=== PATIENT | male | born 1965 | race Caucasian/White ===

== ENCOUNTER 2017-10-28 06:13 | Day surgery (SDC) | payer OTHER ==
[2017-10-28] MEDS ORDERED: PROPOFOL 60 ML (08:29)
== END 2017-10-28 11:23 | disposition home or self-care (01) ==
LOC: GIL 06:13
DX: Z12.11 Encounter for screening for malignant neoplasm of colon (principal); K64.8 Other hemorrhoids
CPT/HCPCS: 45378

== ENCOUNTER 2018-08-28 12:38 | Inpatient (IN) | payer OTHER ==
[2018-08-28 14:13] LABS: ADD MAN DIFF? NO
[2018-08-28] MEDS: SODIUM CHLORIDE 0.9% 1L BAG IV* (14:18)
[2018-08-28] MEDS: ONDANSETRON 4 MG INJ IV (14:18)
[2018-08-28] MEDS: HYDROmorphONE 0.5 MG/0.5 ML SYG IV (14:18)
[2018-08-28] MEDS: PIPER-TAZO 3.375 GM IV (PMX) 100 ML IVPB ×3 (14:18→23:49)
[2018-08-28 14:20] LABS: BASOPHILS % 0.2 % (0.0-2.0); EOSINOPHILS % 0.1 % (0.0-7.0); HEMATOCRIT 41.4 % (42.0-52.0); HEMOGLOBIN 13.9 g/dl (14.0-18.0); LYMPHOCYTES # 1.8 10^3/ul (0.8-2.9); MEAN CORPUSCULAR HEMOGLOBIN 29.4 pg (29.0-33.0); MEAN CORPUSCULAR HGB CONC 33.6 g/dl (32.0-37.0); MEAN CORPUSCULAR VOLUME 87.7 fl (82.0-101.0); MONOCYTE # 1.5 10^3/ul (0.3-0.9); MONOCYTES % 8.1 % (0.0-11.0); NEUTROPHIL # 14.7 10^3/ul (1.6-7.5); NEUTROPHILS % 81.1 % (39.0-77.0); PLATELET COUNT 213 10^3/UL (140-415); RED BLOOD COUNT 4.72 10^6/ul (4.70-6.10); RED CELL DISTRIBUTION WIDTH 12.5 % (11.5-14.5)
[2018-08-28 14:20] LABS: WHITE BLOOD COUNT 18.1 10^3/ul (4.8-10.8)
[2018-08-28 14:39] LABS: ALANINE AMINOTRANSFERASE 12 IU/L (13-69); ALBUMIN 4.2 g/dl (3.3-4.9); ALBUMIN/GLOBULIN RATIO 1.16; ALKALINE PHOSPHATASE 54 IU/L (42-121); ANION GAP 8 (5-13); ASPARTATE AMINO TRANSFERASE 17 IU/L (15-46); BILIRUBIN,INDIRECT 0.4 mg/dl (0-1.1); BILIRUBIN,TOTAL 0.4 mg/dl (0.2-1.3); BLOOD UREA NITROGEN 10 mg/dl (7-20); CALCIUM 9.2 mg/dl (8.4-10.2); CARBON DIOXIDE 28 mmol/L (21-31); CHLORIDE 102 mmol/L (97-110); CREATININE 0.73 mg/dl (0.61-1.24); Estimated GFR > 60 mL/min (>60); GLUCOSE 145 mg/dl (70-220); INR 1.04; LIPASE 32 U/L (23-300); PARTIAL THROMBOPLASTIN TIME 31.8 Sec (23.0-35.0); POTASSIUM 3.8 mmol/L (3.5-5.1); PROTIME 13.7 Sec (11.9-14.9); PT RATIO 1.1; SODIUM 138 mmol/L (135-144); TOTAL PROTEIN 7.8 g/dl (6.1-8.1)
[2018-08-28] MEDS ORDERED: ACETAMINOPHEN 325 MG TAB PO (16:00)
[2018-08-28] MEDS ORDERED: ONDANSETRON 4 MG INJ IV ×2 (16:00→16:30)
[2018-08-28] MEDS ORDERED: NACL 0.9% 3 ML SYG IV (16:30)
[2018-08-28] MEDS ORDERED: morphine 2 MG INJ IV (16:30)
[2018-08-28 16:51] LABS: HEMOGLOBIN A1C 6.9 % (0-5.9)
[2018-08-28] MEDS: SOD CHLORIDE 0.9% 1,000 ML IV (16:57)
[2018-08-28] MEDS: HYDROCODONE/APAP (5/325) TAB PO ×2 (17:38→23:52)
[2018-08-28] MEDS: morphine SULFATE/PF (2 MG/2 ML) SYG IV (21:12)
[2018-08-29] MEDS: SOD CHLORIDE 0.9% 1,000 ML IV ×3 (03:03→22:30)
[2018-08-29] MEDS: PIPER-TAZO 3.375 GM IV (PMX) 100 ML IVPB ×3 (05:36→17:49)
[2018-08-29 05:52] LABS: ADD MAN DIFF? NO
[2018-08-29 05:54] LABS: WHITE BLOOD COUNT 13.2 10^3/ul (4.8-10.8)
[2018-08-29 05:54] LABS: BASOPHILS % 0.2 % (0.0-2.0); EOSINOPHILS % 0.3 % (0.0-7.0); HEMATOCRIT 36.8 % (42.0-52.0); HEMOGLOBIN 12.4 g/dl (14.0-18.0); LYMPHOCYTES # 1.6 10^3/ul (0.8-2.9); LYMPHOCYTES % 12.3 % (15.0-51.0); MEAN CORPUSCULAR HGB CONC 33.7 g/dl (32.0-37.0); MEAN CORPUSCULAR VOLUME 88.9 fl (82.0-101.0); MEAN PLATELET VOLUME 10.5 fl (7.4-10.4); MONOCYTES % 7.5 % (0.0-11.0); NEUTROPHIL # 10.4 10^3/ul (1.6-7.5); NEUTROPHILS % 79.2 % (39.0-77.0); PLATELET COUNT 205 10^3/UL (140-415); RED BLOOD COUNT 4.14 10^6/ul (4.70-6.10); RED CELL DISTRIBUTION WIDTH 12.4 % (11.5-14.5)
[2018-08-29 06:19] LABS: INR 1.09; PROTIME 14.2 Sec (11.9-14.9); PT RATIO 1.1
[2018-08-29 06:20] LABS: PARTIAL THROMBOPLASTIN TIME 36.2 Sec (23.0-35.0)
[2018-08-29 06:32] LABS: PHOSPHORUS 2.8 mg/dl (2.5-4.9)
[2018-08-29 06:32] LABS: CHOL/HDL RATIO 5.2 RATIO; CHOLESTEROL 116 mg/dl (100-200); HDL CHOLESTEROL 22 mg/dl (28-71); LDL CHOLESTEROL,CALCULATED 60 mg/dl; MAGNESIUM 2.1 mg/dl (1.7-2.5); TRIGLYCERIDES 169 mg/dl (0-149)
[2018-08-29 06:43] LABS: ALANINE AMINOTRANSFERASE 15 IU/L (13-69); ALBUMIN 3.3 g/dl (3.3-4.9); ALBUMIN/GLOBULIN RATIO 1.17; ALKALINE PHOSPHATASE 48 IU/L (42-121); ANION GAP 6 (5-13); ASPARTATE AMINO TRANSFERASE 14 IU/L (15-46); BILIRUBIN,INDIRECT 0.4 mg/dl (0-1.1); BILIRUBIN,TOTAL 0.4 mg/dl (0.2-1.3); BLOOD UREA NITROGEN 9 mg/dl (7-20); CALCIUM 8.8 mg/dl (8.4-10.2); CARBON DIOXIDE 25 mmol/L (21-31); CHLORIDE 106 mmol/L (97-110); CREATININE 0.69 mg/dl (0.61-1.24); Estimated GFR > 60 mL/min (>60); GLUCOSE 112 mg/dl (70-220); POTASSIUM 3.9 mmol/L (3.5-5.1); SODIUM 137 mmol/L (135-144); TOTAL PROTEIN 6.1 g/dl (6.1-8.1)
[2018-08-29] MEDS: HYDROCODONE/APAP (5/325) TAB PO ×2 (08:03→20:20)
[2018-08-29] MEDS: morphine 2 MG INJ IV (14:22)
[2018-08-29] MEDS: ACETAMINOPHEN 325 MG TAB PO (17:49)
[2018-08-30] MEDS: PIPER-TAZO 3.375 GM IV (PMX) 100 ML IVPB ×4 (00:41→18:20)
[2018-08-30] MEDS: ACETAMINOPHEN 325 MG TAB PO (02:22)
[2018-08-30] MEDS: HYDROCODONE/APAP (5/325) TAB PO ×2 (02:24→20:18)
[2018-08-30] MEDS: SOD CHLORIDE 0.9% 1,000 ML IV ×3 (03:07→20:45)
[2018-08-30] MEDS ORDERED: VANCOMYCIN IV PER PHARMACY XX (06:30)
[2018-08-30] MEDS ORDERED: PROPOFOL 200 MG INJ (07:00)
[2018-08-30 07:22] LABS: ADD MAN DIFF? NO
[2018-08-30 07:26] LABS: BASOPHILS % 0.2 % (0.0-2.0); EOSINOPHILS % 0.2 % (0.0-7.0); HEMATOCRIT 36.2 % (42.0-52.0); HEMOGLOBIN 11.8 g/dl (14.0-18.0); MEAN CORPUSCULAR HEMOGLOBIN 29.1 pg (29.0-33.0); MEAN CORPUSCULAR HGB CONC 32.6 g/dl (32.0-37.0); MEAN CORPUSCULAR VOLUME 89.4 fl (82.0-101.0); MEAN PLATELET VOLUME 10.7 fl (7.4-10.4); MONOCYTES % 8.2 % (0.0-11.0); NEUTROPHIL # 10.1 10^3/ul (1.6-7.5); NEUTROPHILS % 82.7 % (39.0-77.0); PLATELET COUNT 206 10^3/UL (140-415); RED BLOOD COUNT 4.05 10^6/ul (4.70-6.10); RED CELL DISTRIBUTION WIDTH 12.4 % (11.5-14.5)
[2018-08-30 07:26] LABS: WHITE BLOOD COUNT 12.2 10^3/ul (4.8-10.8)
[2018-08-30 07:45] LABS: LACTIC ACID 1.4 mmol/L (0.5-2.0)
[2018-08-30 07:53] LABS: MAGNESIUM 2.3 mg/dl (1.7-2.5)
[2018-08-30 07:53] LABS: PHOSPHORUS 3.9 mg/dl (2.5-4.9)
[2018-08-30 07:54] LABS: ALANINE AMINOTRANSFERASE 16 IU/L (13-69); ALBUMIN 3.5 g/dl (3.3-4.9); ALBUMIN/GLOBULIN RATIO 1.09; ALKALINE PHOSPHATASE 54 IU/L (42-121); ANION GAP 7 (5-13); ASPARTATE AMINO TRANSFERASE 22 IU/L (15-46); BILIRUBIN,INDIRECT 0.4 mg/dl (0-1.1); BILIRUBIN,TOTAL 0.4 mg/dl (0.2-1.3); BLOOD UREA NITROGEN 12 mg/dl (7-20); CALCIUM 8.9 mg/dl (8.4-10.2); CARBON DIOXIDE 29 mmol/L (21-31); CHLORIDE 102 mmol/L (97-110); CREATININE 0.74 mg/dl (0.61-1.24); Estimated GFR > 60 mL/min (>60); GLUCOSE 150 mg/dl (70-220); SODIUM 138 mmol/L (135-144); TOTAL PROTEIN 6.7 g/dl (6.1-8.1)
[2018-08-30] MEDS: VANCOMYCIN HCL 2 GM in SOD CHLORIDE 0.9% 500 ML IVPB (09:16)
[2018-08-30] MEDS ORDERED: BUPIVACAINE 0.25% (MPF) 30 ML INJ (12:32)
[2018-08-30] MEDS ORDERED: LIDOCAINE 1%/EPI (1:100,000) (MDV) 20 ML (12:32)
[2018-08-30] MEDS ORDERED: IOHEXOL 300MG/ML 30 ML BTL (12:34)
[2018-08-30 12:51] LABS: LACTIC ACID 1.5 mmol/L (0.5-2.0)
[2018-08-30] MEDS ORDERED: MIDAZOLAM 1 MG/ML 2 ML INJ (16:09)
[2018-08-30] MEDS ORDERED: ROCURONIUM 50 MG INJ (16:09)
[2018-08-30] MEDS ORDERED: ROPIVACAINE 0.5 % 30 ML VIAL (16:09)
[2018-08-30] MEDS ORDERED: CEFAZOLIN 1 GM INJ (16:09)
[2018-08-30] MEDS ORDERED: PROPOFOL 20 ML (16:09)
[2018-08-30] MEDS ORDERED: FENTAnyl 50 MCG/ML VIAL IV ×2 (16:30)
[2018-08-30] MEDS ORDERED: MEPERIDINE 25 MG INJ IV (16:30)
[2018-08-30] MEDS ORDERED: ONDANSETRON 4 MG INJ IV ×2 (16:30→18:30)
[2018-08-30] MEDS ORDERED: METOCLOPRAMIDE 10 MG INJ IV (16:30)
[2018-08-30] MEDS ORDERED: EPHEDrine SULFATE 50 MG/5 ML SYG IV (16:30)
[2018-08-30] MEDS ORDERED: LABETALOL HCL 20MG INJ IV (16:30)
[2018-08-30] MEDS ORDERED: DIPHENHYDRAMINE 50 MG INJ IV (16:30)
[2018-08-30] MEDS ORDERED: hydrALAzine 20 MG INJ IV (16:30)
[2018-08-30] MEDS ORDERED: HYDROmorphONE 1 MG/5 ML IV SYRINGE IV ×2 (16:30)
[2018-08-30] MEDS ORDERED: FENTAnyl 50 MCG/ML VIAL (16:47)
[2018-08-30] MEDS ORDERED: DEXAMETHASONE 4 MG/ML 5 ML INJ (17:01)
[2018-08-30] MEDS ORDERED: METOCLOPRAMIDE 10 MG INJ (17:01)
[2018-08-30] MEDS ORDERED: ONDANSETRON 4 MG INJ (17:01)
[2018-08-30] MEDS: LIDOCAINE 1%/EPI (1:100,000) (MDV) 20 ML (17:30)
[2018-08-30] MEDS: BUPIVACAINE 0.25% (MPF) 30 ML INJ (17:30)
[2018-08-30] MEDS ORDERED: SUGAMMADEX SODIUM 200 MG/2 ML VIAL IV ×2 (17:40→17:52)
[2018-08-30] MEDS: FENTAnyl 50 MCG/ML VIAL IV (18:30)
[2018-08-30] MEDS ORDERED: IBUPROFEN 400 MG TAB PO (18:30)
[2018-08-30] MEDS: HYDROmorphONE 1 MG/5 ML IV SYRINGE IV (18:55)
[2018-08-30] MEDS ORDERED: VANCOMYCIN HCL 1.5 GM in SOD CHLORIDE 0.9% 250 ML IVPB (20:00)
[2018-08-30] MEDS: VANCOMYCIN HCL 1.5 GM in SOD CHLORIDE 0.9% 250 ML IVPB (20:44)
[2018-08-31] MEDS: PIPER-TAZO 3.375 GM IV (PMX) 100 ML IVPB ×4 (00:13→17:16)
[2018-08-31] MEDS: morphine 2 MG INJ IV ×2 (00:18→05:55)
[2018-08-31 06:10] LABS: ADD MAN DIFF? NO
[2018-08-31 06:13] LABS: WHITE BLOOD COUNT 12.9 10^3/ul (4.8-10.8)
[2018-08-31 06:13] LABS: BASOPHILS % 0.1 % (0.0-2.0); HEMATOCRIT 33.7 % (42.0-52.0); LYMPHOCYTES # 0.7 10^3/ul (0.8-2.9); LYMPHOCYTES % 5.5 % (15.0-51.0); MEAN CORPUSCULAR HEMOGLOBIN 29.3 pg (29.0-33.0); MEAN CORPUSCULAR HGB CONC 32.6 g/dl (32.0-37.0); MEAN CORPUSCULAR VOLUME 89.6 fl (82.0-101.0); MEAN PLATELET VOLUME 10.8 fl (7.4-10.4); MONOCYTE # 0.5 10^3/ul (0.3-0.9); NEUTROPHIL # 11.6 10^3/ul (1.6-7.5); NEUTROPHILS % 89.8 % (39.0-77.0); PLATELET COUNT 169 10^3/UL (140-415); RED BLOOD COUNT 3.76 10^6/ul (4.70-6.10); RED CELL DISTRIBUTION WIDTH 12.3 % (11.5-14.5)
[2018-08-31 06:38] LABS: PHOSPHORUS 2.2 mg/dl (2.5-4.9)
[2018-08-31 06:38] LABS: MAGNESIUM 2.7 mg/dl (1.7-2.5)
[2018-08-31 06:54] LABS: ALANINE AMINOTRANSFERASE 30 IU/L (13-69); ALBUMIN 3.3 g/dl (3.3-4.9); ALBUMIN/GLOBULIN RATIO 1.03; ALKALINE PHOSPHATASE 57 IU/L (42-121); ANION GAP 9 (5-13); ASPARTATE AMINO TRANSFERASE 41 IU/L (15-46); BLOOD UREA NITROGEN 18 mg/dl (7-20); CALCIUM 8.9 mg/dl (8.4-10.2); CARBON DIOXIDE 25 mmol/L (21-31); CHLORIDE 108 mmol/L (97-110); CREATININE 0.67 mg/dl (0.61-1.24); Estimated GFR > 60 mL/min (>60); GLUCOSE 236 mg/dl (70-220); POTASSIUM 4.3 mmol/L (3.5-5.1); SODIUM 142 mmol/L (135-144); TOTAL PROTEIN 6.5 g/dl (6.1-8.1)
[2018-08-31] MEDS: HYDROCODONE/APAP (5/325) TAB PO ×3 (08:40→17:16)
[2018-08-31] MEDS: VANCOMYCIN HCL 1.5 GM in SOD CHLORIDE 0.9% 250 ML IVPB ×2 (08:43→21:20)
[2018-08-31] MEDS: SOD CHLORIDE 0.9% 1,000 ML IV (14:43)
[2018-08-31] MEDS: BISACODYL (EC) 5 MG TAB PO (16:27)
[2018-08-31] MEDS: POLYETHYLENE GLYCOL 17 GM PACKET PO (20:33)
[2018-08-31 21:05] LABS: VANCOMYCIN,TROUGH 5.9 ug/ml (10.0-20.0)
[2018-09-01] MEDS: PIPER-TAZO 3.375 GM IV (PMX) 100 ML IVPB ×4 (00:16→18:27)
[2018-09-01] MEDS: HYDROCODONE/APAP (5/325) TAB PO ×5 (00:16→20:50)
[2018-09-01] MEDS: SOD CHLORIDE 0.9% 1,000 ML IV ×3 (00:30→23:00)
[2018-09-01] MEDS: VANCOMYCIN HCL 1.5 GM in SOD CHLORIDE 0.9% 250 ML IVPB ×2 (02:41→12:01)
[2018-09-01 05:46] LABS: ADD MAN DIFF? NO
[2018-09-01 05:51] LABS: BASOPHILS % 0.2 % (0.0-2.0); HEMATOCRIT 30.6 % (42.0-52.0); HEMOGLOBIN 10.2 g/dl (14.0-18.0); LYMPHOCYTES # 1.4 10^3/ul (0.8-2.9); MEAN CORPUSCULAR HEMOGLOBIN 29.8 pg (29.0-33.0); MEAN CORPUSCULAR HGB CONC 33.3 g/dl (32.0-37.0); MEAN CORPUSCULAR VOLUME 89.5 fl (82.0-101.0); MONOCYTE # 0.9 10^3/ul (0.3-0.9); MONOCYTES % 5.5 % (0.0-11.0); NEUTROPHIL # 13.1 10^3/ul (1.6-7.5); NEUTROPHILS % 84.6 % (39.0-77.0); PLATELET COUNT 148 10^3/UL (140-415); RED BLOOD COUNT 3.42 10^6/ul (4.70-6.10); RED CELL DISTRIBUTION WIDTH 12.6 % (11.5-14.5)
[2018-09-01 05:51] LABS: WHITE BLOOD COUNT 15.5 10^3/ul (4.8-10.8)
[2018-09-01 06:23] LABS: PHOSPHORUS 2.8 mg/dl (2.5-4.9)
[2018-09-01 06:23] LABS: MAGNESIUM 2.4 mg/dl (1.7-2.5)
[2018-09-01 06:31] LABS: ALANINE AMINOTRANSFERASE 28 IU/L (13-69); ALBUMIN 2.8 g/dl (3.3-4.9); ALBUMIN/GLOBULIN RATIO 0.93; ALKALINE PHOSPHATASE 58 IU/L (42-121); ANION GAP 3 (5-13); ASPARTATE AMINO TRANSFERASE 30 IU/L (15-46); BLOOD UREA NITROGEN 17 mg/dl (7-20); CALCIUM 8.5 mg/dl (8.4-10.2); CARBON DIOXIDE 27 mmol/L (21-31); CHLORIDE 109 mmol/L (97-110); CREATININE 0.68 mg/dl (0.61-1.24); Estimated GFR > 60 mL/min (>60); GLUCOSE 235 mg/dl (70-220); SODIUM 139 mmol/L (135-144); TOTAL PROTEIN 5.8 g/dl (6.1-8.1)
[2018-09-01] MEDS: POLYETHYLENE GLYCOL 17 GM PACKET PO ×2 (08:30→20:36)
[2018-09-01] MEDS ORDERED: ALBUTEROL HFA 8 GM INHALER INH (18:00)
[2018-09-01] MEDS ORDERED: HYDROCODONE/APAP (10/325) TAB PO (18:00)
[2018-09-01] MEDS ORDERED: morphine LIQ (10 MG/5 ML) CUP PO (23:00)
[2018-09-02] MEDS: PIPER-TAZO 3.375 GM IV (PMX) 100 ML IVPB ×2 (00:02→06:23)
[2018-09-02] MEDS: HYDROCODONE/APAP (5/325) TAB PO (03:49)
[2018-09-02] MEDS: SOD CHLORIDE 0.9% 1,000 ML IV (03:51)
[2018-09-02 07:56] LABS: ADD MAN DIFF? NO
[2018-09-02 08:02] LABS: WHITE BLOOD COUNT 9.5 10^3/ul (4.8-10.8)
[2018-09-02 08:02] LABS: BASOPHILS % 0.2 % (0.0-2.0); EOSINOPHILS # 0.1 10^3/ul (0.0-0.5); EOSINOPHILS % 0.7 % (0.0-7.0); HEMATOCRIT 31.9 % (42.0-52.0); HEMOGLOBIN 10.7 g/dl (14.0-18.0); LYMPHOCYTES # 1.9 10^3/ul (0.8-2.9); LYMPHOCYTES % 19.9 % (15.0-51.0); MEAN CORPUSCULAR HEMOGLOBIN 29.7 pg (29.0-33.0); MEAN CORPUSCULAR HGB CONC 33.5 g/dl (32.0-37.0); MEAN CORPUSCULAR VOLUME 88.6 fl (82.0-101.0); MEAN PLATELET VOLUME 11.2 fl (7.4-10.4); MONOCYTE # 0.8 10^3/ul (0.3-0.9); MONOCYTES % 8.1 % (0.0-11.0); NEUTROPHIL # 6.7 10^3/ul (1.6-7.5); NEUTROPHILS % 70.6 % (39.0-77.0); PLATELET COUNT 191 10^3/UL (140-415); RED CELL DISTRIBUTION WIDTH 12.5 % (11.5-14.5)
[2018-09-02] MEDS: ENOXAPARIN 40 MG/0.4 ML SYG SC (08:23)
[2018-09-02] MEDS: FAMOTIDINE 20 MG TAB PO (08:23)
[2018-09-02] MEDS: POLYETHYLENE GLYCOL 17 GM PACKET PO (08:23)
[2018-09-02 08:39] LABS: ALANINE AMINOTRANSFERASE 36 IU/L (13-69); ALBUMIN 2.8 g/dl (3.3-4.9); ALBUMIN/GLOBULIN RATIO 0.93; ALKALINE PHOSPHATASE 46 IU/L (42-121); ANION GAP 4 (5-13); ASPARTATE AMINO TRANSFERASE 22 IU/L (15-46); BILIRUBIN,INDIRECT 0.1 mg/dl (0-1.1); BILIRUBIN,TOTAL 0.1 mg/dl (0.2-1.3); BLOOD UREA NITROGEN 14 mg/dl (7-20); CALCIUM 8.4 mg/dl (8.4-10.2); CARBON DIOXIDE 30 mmol/L (21-31); CHLORIDE 107 mmol/L (97-110); CREATININE 0.73 mg/dl (0.61-1.24); Estimated GFR > 60 mL/min (>60); GLUCOSE 152 mg/dl (70-220); POTASSIUM 3.6 mmol/L (3.5-5.1); SODIUM 141 mmol/L (135-144); TOTAL PROTEIN 5.8 g/dl (6.1-8.1)
[2018-09-02 08:53] LABS: PHOSPHORUS 3.7 mg/dl (2.5-4.9)
[2018-09-02] MEDS ORDERED: LEVOFLOXACIN 500 MG TAB PO (11:00)
== END 2018-09-02 12:00 | disposition home health service (06) | DRG 854 ==
LOC: E/R 12:38 → PP2 15:55
PROC: 0FT44ZZ Resection of Gallbladder, Percutaneous Endoscopic Approach (ICD-10-PCS; principal; 2018-08-30 16:06)
PROC: 0FB04ZX Excision of Liver, Percutaneous Endoscopic Approach, Diagnostic (ICD-10-PCS; 2018-08-30 16:06)
DX: A41.9 Sepsis, unspecified organism (principal); K80.00 Calculus of gallbladder with acute cholecystitis without obstruction; J98.11 Atelectasis; E78.5 Hyperlipidemia, unspecified; E66.9 Obesity, unspecified; Z68.33 Body mass index [BMI] 33.0-33.9, adult; E11.9 Type 2 diabetes mellitus without complications; K57.90 Diverticulosis of intestine, part unspecified, without perforation or abscess without bleeding; D64.9 Anemia, unspecified; F17.210 Nicotine dependence, cigarettes, uncomplicated; Z79.82 Long term (current) use of aspirin
CPT/HCPCS: 36415; 71045; 76705; 78226; 80053; 80061; 80202; 82962; 83036; 83605; 83690; 83735; 84100; 85025; 85610; 85730; 87040; 87081; 88304; 88307; 88313; 93005; 96365; 96375; 99285-25

== ENCOUNTER 2018-10-15 09:37 | Emergency (ER) | payer OTHER | END 2018-10-15 10:34 | disposition home or self-care (01) | LOC: FTE 09:37 | DX: B34.9 Viral infection, unspecified (principal); F17.210 Nicotine dependence, cigarettes, uncomplicated; Z79.82 Long term (current) use of aspirin | CPT/HCPCS: 99282; Z7502 ==